=== PATIENT | female | born 1955 | race Caucasian/White ===

== ENCOUNTER → 2017-04-11 | Outpatient (CLI) | payer OTHER, MEDICAID ==
[2016-09-09 17:39] VITALS: BP 176/78
[2017-04-11 08:28] LABS: BASOPHILS # (AUTO) 0.1 X10^3/uL (0.0-0.1); BASOPHILS % (AUTO) 0.9 % (0.2-1.0); EOSINOPHILS # (AUTO) 0.4 x10^3/uL (0.0-0.2); EOSINOPHILS % (AUTO) 6.6 % (0.9-2.9); HEMOGLOBIN 11.8 g/dL (12.0-16.0); LYMPHOCYTES # (AUTO) 1.4 X10^3/uL (1.3-2.9); LYMPHOCYTES % (AUTO) 23.4 % (21.0-51.0); MEAN CORPUSCULAR HEMOGLOBIN 29.2 pg (27.0-34.0); MEAN CORPUSCULAR HGB CONC 32.8 g/dL (33.0-35.0); MEAN CORPUSCULAR VOLUME 88.9 fL (80.0-100.0); MEAN PLATELET VOLUME 8.9 fL (7.4-11.0); MONOCYTES # (AUTO) 0.6 x10^3/uL (0.3-0.8); MONOCYTES % (AUTO) 9.4 % (0.0-13.0); NEUTROPHILS # (AUTO) 3.5 x10^3/uL (2.2-4.8); NEUTROPHILS % (AUTO) 59.7 % (42.0-75.0); PLATELET COUNT 259 X10^3/uL (150.0-450.0); RED BLOOD COUNT 4.05 X10^6/uL (3.5-5.4); RED CELL DISTRIBUTION WIDTH 14.4 % (11.6-16.5); WHITE BLOOD COUNT 5.9 X10^3/uL (3.6-10.0)
[2017-04-11 08:36] LABS: HEMOGLOBIN A1C 10.8 % (4.5-6.2)
[2017-04-11 08:37] LABS: ALANINE AMINOTRANSFERASE 47 Units/L (12-78); ALBUMIN 3.7 g/dL (3.4-5.0); ALKALINE PHOSPHATASE 46 Units/L (46-116); ASPARTATE AMINO TRANSFERASE 43 Units/L (15-37); BLOOD UREA NITROGEN 27 mg/dL (7-18); CALCIUM 10.3 mg/dL (8.5-10.1); CARBON DIOXIDE 27.8 mmol/L (21-32); CHLORIDE 103 mmol/L (98-107); CHOL/HDL RATIO 5.8 (0.0-5.0); CHOLESTEROL 209 mg/dL (0-200); COR NA(FOR HYPERGLY) 143 mmol/L (136-145); CREATININE 1.49 mg/dL (0.55-1.02); GLUCOSE 273 mg/dL (65-99); HDL CHOLESTEROL 36 mg/dL (40-60); SODIUM 139 mmol/L (136-145); TOTAL PROTEIN 7.3 g/dL (6.4-8.2); TRIGLYCERIDES 381 mg/dL (0-150); eGFR BLACK RACES 46 (>60); eGFR NON BLACK RACES 38 (>60)
[2017-04-11 08:47] LABS: CREATININE,URINE 137.46 mg/dL (29-226)
[2017-04-11 08:50] LABS: MICROALBUMIN,URINE 612.4 mg/L
== END ==
LOC: LAB 08:00
PROVIDERS: ATTEND Obstetrics & Gynecology Obstetrics
DX: G47.61 Periodic limb movement disorder (principal); E11.9 Type 2 diabetes mellitus without complications
CPT/HCPCS: 36415; 80053; 80061; 82043; 82728; 83036; 83525; 85025

== ENCOUNTER → 2017-06-22 | Outpatient (CLI) | payer OTHER, MEDICAID ==
[2016-09-09 17:39] VITALS: BP 176/78
[2017-06-22 19:55] LABS: CALCIUM 9.9 mg/dL (8.5-10.1); CARBON DIOXIDE 26.9 mmol/L (21-32); CREATININE 1.23 mg/dL (0.55-1.02); URIC ACID 3.2 mg/dL (2.6-6.0)
== END ==
LOC: LAB 18:00
PROVIDERS: ATTEND Nurse Practitioner Family
DX: E11.9 Type 2 diabetes mellitus without complications (principal)
CPT/HCPCS: 36415; 80048; 82306; 82607; 83036; 84550

== ENCOUNTER 2017-07-27 08:21 | Day surgery (SDC) | payer OTHER, MEDICAID ==
[2017-07-27] MEDS ORDERED: D5 LR 1000 ML 1,000 ML IV ONE (08:23)
[2017-07-27] MEDS ORDERED: NS 1000 ML 1,000 ML ONE (08:42)
[2017-07-27] MEDS ORDERED: DIPRIVAN VIAL 20 ML ONE (09:52)
[2017-07-27 10:51] VITALS: BP 145/70
== END 2017-07-27 10:33 | disposition home or self-care (01) ==
LOC: SURG1 08:21
PROVIDERS: ATTEND Internal Medicine Gastroenterology
PROC: 0DB98ZX Excision of Duodenum, Via Natural or Artificial Opening Endoscopic, Diagnostic (ICD-10-PCS; principal; 2017-07-27 11:00)
PROC: 0DB88ZX Excision of Small Intestine, Via Natural or Artificial Opening Endoscopic, Diagnostic (ICD-10-PCS; principal; 2017-07-27 11:00)
PROC: 0DB68ZX Excision of Stomach, Via Natural or Artificial Opening Endoscopic, Diagnostic (ICD-10-PCS; principal; 2017-07-27 11:00)
PROC: 0DJ08ZZ Inspection of Upper Intestinal Tract, Via Natural or Artificial Opening Endoscopic (ICD-10-PCS; principal; 2017-07-27 11:00)
DX: R13.19 Other dysphagia (principal); R10.13 Epigastric pain; K21.9 Gastro-esophageal reflux disease without esophagitis; K29.60 Other gastritis without bleeding; K26.9 Duodenal ulcer, unspecified as acute or chronic, without hemorrhage or perforation; K22.4 Dyskinesia of esophagus; K20.8 Other esophagitis; K22.2 Esophageal obstruction; D3A.092 Benign carcinoid tumor of the stomach
CPT/HCPCS: A4217; J3490; J7120

== ENCOUNTER 2017-08-03 07:08 | Day surgery (SDC) | payer OTHER, MEDICAID ==
[2017-08-03] MEDS ORDERED: D5 LR 1000 ML 1,000 ML IV ONE (07:15)
[2017-08-03] MEDS ORDERED: NS 1000 ML 1,000 ML ONE (07:27)
[2017-08-03] MEDS ORDERED: DIPRIVAN VIAL 20 ML ONE (08:52)
[2017-08-03] MEDS ORDERED: FENTANYL INJ 100 mcg ONE (08:52)
[2017-08-03] MEDS ORDERED: XYLOCAINE-MPF 1% ONE (08:52)
[2017-08-03 09:26] VITALS: BP 146/71
== END 2017-08-03 09:35 | disposition home or self-care (01) ==
LOC: SURG1 07:08
PROVIDERS: ATTEND Internal Medicine Gastroenterology
PROC: 0DBL8ZX Excision of Transverse Colon, Via Natural or Artificial Opening Endoscopic, Diagnostic (ICD-10-PCS; principal; 2017-08-03 08:30)
PROC: 0DJD8ZZ Inspection of Lower Intestinal Tract, Via Natural or Artificial Opening Endoscopic (ICD-10-PCS; principal; 2017-08-03 08:30)
DX: Z12.11 Encounter for screening for malignant neoplasm of colon (principal); K63.5 Polyp of colon; K57.30 Diverticulosis of large intestine without perforation or abscess without bleeding; K64.0 First degree hemorrhoids; D12.3 Benign neoplasm of transverse colon; R19.4 Change in bowel habit
CPT/HCPCS: A4217; J3010; J3490; J7120

== ENCOUNTER 2021-05-27 17:11 | Observation (INO) ==
[2021-05-27] MEDS ORDERED: HumuLIN R SC PRN (19:23)
[2021-05-27] MEDS ORDERED: NS 1000 ML 1,000 ML IV ONE (19:25)
--- NOTE | 2021-05-27 19:49 | RAD ---
CHEST, 1 VIEWHISTORY: SOBStudy: Single view of the chest.Comparison:NoneFindings:The cardiomediastinal silhouette is normal.No focal consolidations, pleural effusions or pneumothorax. Osseous structures demonstrate no acute abnormality.IMPRESSION:1. No acute cardiopulmonary process.Electronically signed by: NANCY CADET (May 27, 2021 19:46:52)
[2021-05-27] MEDS ORDERED: KAYEXALATE SUSP PO SCH (20:00)
[2021-05-27] MEDS ORDERED: TOUJEO SOLOSTAR PEN SC SCH (21:00)
[2021-05-27 21:50] VITALS: BMI 29.0
[2021-05-27] MEDS: NS 1000 ML 1,000 ML IV SCH (22:43)
[2021-05-28] MEDS: NS 1000 ML 1,000 ML IV SCH (05:29)
[2021-05-28 05:54] LABS: BASOPHILS # (AUTO) 0.1 X10^3/uL (0.0-0.1); BASOPHILS % (AUTO) 0.8 % (0.2-1.0); EOSINOPHILS # (AUTO) 0.2 x10^3/uL (0.0-0.2); EOSINOPHILS % (AUTO) 3.1 % (0.9-2.9); HEMATOCRIT 32.9 % (36.0-47.0); HEMOGLOBIN 11.4 g/dL (12.0-16.0); LYMPHOCYTES # (AUTO) 1.7 X10^3/uL (1.3-2.9); LYMPHOCYTES % (AUTO) 24.2 % (21.0-51.0); MEAN CORPUSCULAR HEMOGLOBIN 30.2 pg (27.0-34.0); MEAN CORPUSCULAR HGB CONC 34.7 g/dL (33.0-35.0); MEAN CORPUSCULAR VOLUME 87.2 fL (80.0-100.0); MEAN PLATELET VOLUME 9.1 fL (7.4-11.0); MONOCYTES # (AUTO) 0.7 x10^3/uL (0.3-0.8); MONOCYTES % (AUTO) 9.5 % (0.0-13.0); NEUTROPHILS # (AUTO) 4.5 x10^3/uL (2.2-4.8); NEUTROPHILS % (AUTO) 62.4 % (42.0-75.0); PLATELET COUNT 210 X10^3/uL (150.0-450.0); RED BLOOD COUNT 3.78 X10^6/uL (3.5-5.4); RED CELL DISTRIBUTION WIDTH 13.8 % (11.6-16.5); WHITE BLOOD COUNT 7.2 X10^3/uL (3.6-10.0)
[2021-05-28 06:16] LABS: ALANINE AMINOTRANSFERASE 38 Units/L (12-78); ALBUMIN 3.5 g/dL (3.4-5.0); ALKALINE PHOSPHATASE 61 Units/L (46-116); ASPARTATE AMINO TRANSFERASE 35 Units/L (15-37); BLOOD UREA NITROGEN 13 mg/dL (7-18); CALCIUM 9.2 mg/dL (8.5-10.1); CARBON DIOXIDE 26.5 mmol/L (21-32); CHLORIDE 106 mmol/L (98-107); COR NA(FOR HYPERGLY) 145 mmol/L (136-145); CREATININE 0.94 mg/dL (0.55-1.02); SODIUM 141 mmol/L (136-145); TOTAL PROTEIN 6.9 g/dL (6.4-8.2); eGFR NON BLACK RACES > 60 (>60)
[2021-05-28] MEDS ORDERED: SYNTHROID 50 mcg TAB PO SCH (09:00)
[2021-05-28] MEDS ORDERED: ARMODAFINIL 250 MG PO SCH (09:00)
[2021-05-28] MEDS ORDERED: LOPRESSOR TAB 25 MG PO SCH (09:00)
[2021-05-28] MEDS ORDERED: NORVASC TAB 10 MG PO SCH (09:00)
[2021-05-28] MEDS ORDERED: LEXAPRO PO SCH (09:00)
[2021-05-28] MEDS ORDERED: ASPIRIN EC 81 MG PO SCH (09:00)
[2021-05-28] MEDS ORDERED: PROTONIX TAB 40 MG PO SCH (09:00)
[2021-05-28] MEDS ORDERED: JANUVIA PO SCH (09:00)
[2021-05-28] MEDS ORDERED: LOTENSIN TAB 10 MG PO SCH (09:00)
[2021-05-28] MEDS ORDERED: PLAVIX PO SCH (09:00)
[2021-05-28 09:02] VITALS: BP 151/74
--- NOTE | 2021-05-28 09:03 | DR.SSS ---
SHORT STAY SUMMARY Admission Date Date of Admission: 05/27/21 Discharge Date Discharge Date: 05/28/21 Admission Diagnoses Admission Diagnoses: Hyperglycemia Hyperkalemia KERRI Discharge Diagnoses Discharge Diagnoses: Hyperglycemia Hyperkalemia KERRI Chief Complaint Chief Complaint: Fatigue History of Present Illness History of Present Illness: Pt is a 65 year old female past medical history of Hypertension, DMT2, Hypothyroidism directly admitted from [facility] due to hyperglycemia, hyperkalemia, and rule out DKA. Pt has been reporting worsening fatigue. She does not regularly check her blood glucose levels and when obtaining history it was noted she was not taking correct dose of insulin at home. She has been taking Toujeo 65 units instead of 75 units. She states that when she first took 75 units it made her jittery and felt her blood sugars were "too low". She has had increased urinary frequency without dysuria, abdominal pain, or fever. Pt had labs drawn from clinic that were noted abnormal. Denies chest pain, shortness of breath, palpitations. Past Medical History Past Medical History: Arthritis, Diabetes, Hypertension and Sleep Apnea Past Surgical History Surgical History: Appendectomy and Allergies Allergies Allergy/AdvReac Type Severity Reaction Status Date / Time NSAIDS (Non-Steroidal Allergy Verified 05/27/21 22:00 Anti-Inflamma Penicillins Allergy Verified 10/17/19 08:25 Medications Home Medications: NSAIDS (Non-Steroidal Anti-Inflamma Allergy (Verified 05/27/21 22:00) Penicillins Allergy (Verified 10/17/19 08:25) CONTINUE taking the following medications Janumet 1 tab PO BID 05/28/21 [History] Myrbetriq 25 mg PO DAILY 05/28/21 [History] amlodipine-benazepril 1 cap PO DAILY 05/28/21 [History] armodafinil 250 mg PO DAILY 05/28/21 [History] escitalopram oxalate 20 mg PO DAILY 05/28/21 [History] gabapentin 600 mg PO TID 05/28/21 [History] metoprolol tartrate 25 mg PO BID 05/28/21 [History] oxybutynin chloride 5 mg PO DAILY 05/28/21 [History] rosuvastatin 40 mg PO HS 05/28/21 [History] sulfamethoxazole-trimethoprim 1 tab PO BID 05/28/21 [History] New Prescriptions insulin glargine U-300 conc [Toujeo SoloStar U-300 Insulin] 36 unit SC BID 30 Days #7.2 ml 05/28/21 [Rx] Family History Family Medical History: Diabetes Mellitus, Coronary Artery Disease and Hypertension Social History Alcohol Use: None Drug Use: None Review of Systems Constitutional: Weakness; denies Fever and Chills Eyes: No Symptoms Reported ENT: No Symptoms Reported Respiratory: No Symptoms Reported Cardiovascular: No Symptoms Reported Gastrointestinal: No Symptoms Reported Genitourinary: Frequency; denies Dysuria Musculoskeletal: No Symptoms Reported Skin: No Symptoms Reported Neurological: No Symptoms Reported Physical Exam Vital Signs: Last Vital Signs Temp 98.0 F 05/28/21 08:00 Pulse 91 H 05/28/21 09:00 Resp 19 05/28/21 09:00 BP 151/74 05/28/21 09:00 Pulse Ox 95 05/28/21 09:00 Oriented: Normal Eyes: Normal Ear: Normal Nose: Normal Throat: Normal Respiratory: Clear Throughout Cardiovascular: Normal : Normal Auscultation: Bowel Sounds: Normal Palpation: Normal Tenderness: Normal Skin: Normal Musculoskeletal: Normal Psychiatric: Normal Mood Description: Calm Speech Pattern: Clear Labs Labs: Laboratory Last Values WBC 7.2 X10^3/uL (3.6-10.0) 05/28/21 05:41 RBC 3.78 X10^6/uL (3.5-5.4) 05/28/21 05:41 Hgb 11.4 g/dL (12.0-16.0) L 05/28/21 05:41 Hct 32.9 % (36.0-47.0) L 05/28/21 05:41 MCV 87.2 fL (80.0-100.0) 05/28/21 05:41 MCH 30.2 pg (27.0-34.0) 05/28/21 05:41 MCHC 34.7 g/dL (33.0-35.0) 05/28/21 05:41 RDW 13.8 % (11.6-16.5) 05/28/21 05:41 Plt Count 210 X10^3/uL (150.0-450.0) 05/28/21 05:41 MPV 9.1 fL (7.4-11.0) 05/28/21 05:41 Neut % (Auto) 62.4 % (42.0-75.0) 05/28/21 05:41 Lymph % (Auto) 24.2 % (21.0-51.0) 05/28/21 05:41 Gage % (Auto) 9.5 % (0.0-13.0) 05/28/21 05:41 Eos % (Auto) 3.1 % (0.9-2.9) H 05/28/21 05:41 Baso % (Auto) 0.8 % (0.2-1.0) 05/28/21 05:41 Neut # (Auto) 4.5 x10^3/uL (2.2-4.8) 05/28/21 05:41 Lymph # (Auto) 1.7 X10^3/uL (1.3-2.9) 05/28/21 05:41 Gage # (Auto) 0.7 x10^3/uL (0.3-0.8) 05/28/21 05:41 Eos # (Auto) 0.2 x10^3/uL (0.0-0.2) 05/28/21 05:41 Baso # (Auto) 0.1 X10^3/uL (0.0-0.1) 05/28/21 05:41 Absolute Nucleated RBC 0.0 /100WBC 05/28/21 05:41 Sodium 141 mmol/L (136-145) 05/28/21 05:41 Corrected Sodium 145 mmol/L (136-145) 05/28/21 05:41 Potassium 4.5 mmol/L (3.5-5.1) 05/28/21 05:41 Chloride 106 mmol/L (98-107) 05/28/21 05:41 Carbon Dioxide 26.5 mmol/L (21-32) 05/28/21 05:41 BUN 13 mg/dL (7-18) 05/28/21 05:41 Creatinine 0.94 mg/dL (0.55-1.02) 05/28/21 05:41 Est GFR (MDRD) Af Amer > 60 (>60) 05/28/21 05:41 Est GFR (MDRD) Non-Af > 60 (>60) 05/28/21 05:41 Glucose 246 mg/dL (65-99) H 05/28/21 05:41 POC Glucose (mg/dL) 242 mg/dL (65-99) H 05/28/21 05:22 Calcium 9.2 mg/dL (8.5-10.1) 05/28/21 05:41 Corrected Calcium TNP 05/28/21 05:41 Total Bilirubin 0.20 mg/dL (0.2-1.0) 05/28/21 05:41 AST 35 Units/L (15-37) 05/28/21 05:41 ALT 38 Units/L (12-78) 05/28/21 05:41 Alkaline Phosphatase 61 Units/L (46-116) 05/28/21 05:41 Total Protein 6.9 g/dL (6.4-8.2) 05/28/21 05:41 Albumin 3.5 g/dL (3.4-5.0) 05/28/21 05:41 Globulin 3.4 g/dL (2.5-4.5) 05/28/21 05:41 Albumin/Globulin Ratio 1.0 Ratio (1.1-2.1) L 05/28/21 05:41 Urine Acetone Negative (NEGATIVE) 05/27/21 22:21 SARS-CoV-2 (PCR) Negative (NEGATIVE) 05/27/21 19:21 Influenza Type A (PCR) Negative (NEGATIVE) 05/27/21 19:21 Influenza Type B (PCR) Negative (NEGATIVE) 05/27/21 19:21 RSV (PCR) Negative (NEGATIVE) 05/27/21 19:21 Assessment/Plan (1) Hyperglycemia without ketosis: (2) Hyperkalemia: (3) Acute kidney injury: Hospital Course Hospital Course: Pt had labs/imaging: Wbc 7.2, Hgb 11.4, Plt 210, Na 146, K 6.0, Creatinine 1.30, Glucose 433, A1c 10.5, Acetone negative. CXR: no acute cardiopulmonary process. She was started on IVF NS, SSI, Toujeo, and given kayexalate for hyperkalemia. Other home medications were also restarted. DKA was ruled out. Pt responded well to treatments, K level down to 4.5. Her fatigue improved with IVF hydration. Adjusted insulin Toujeo to 36 units BID dosing. Encouraged and strongly recommended to patient to check home glucose levels daily. Pt discharged in stable condition, instructed to follow up with pcp in 3- 5 days. Discharge Medications Discharge Medications: Home Medication List Janumet 1 tab PO BID 05/28/21 [History] Myrbetriq 25 mg PO DAILY 05/28/21 [History] amlodipine-benazepril 1 cap PO DAILY 05/28/21 [History] armodafinil 250 mg PO DAILY 05/28/21 [History] escitalopram oxalate 20 mg PO DAILY 05/28/21 [History] gabapentin 600 mg PO TID 05/28/21 [History] insulin glargine U-300 conc [Toujeo SoloStar U-300 Insulin] 36 unit SC BID 30 Days #7.2 ml 05/28/21 [Rx] metoprolol tartrate 25 mg PO BID 05/28/21 [History] oxybutynin chloride 5 mg PO DAILY 05/28/21 [History] rosuvastatin 40 mg PO HS 05/28/21 [History] sulfamethoxazole-trimethoprim 1 tab PO BID 05/28/21 [History] Prescriptions: insulin glargine U-300 conc [Toujeo SoloStar U-300 Insulin] [place] Discharge Disposition Discharge Disposition: Home
[2021-05-28] MEDS ORDERED: LEXAPRO ONE (09:12)
[2021-05-28] MEDS ORDERED: NEURONTIN TAB 600 MG PO SCH (14:00)
[2021-05-28] MEDS ORDERED: GLUCOPHAGE PO SCH (17:00)
[2021-05-28] MEDS ORDERED: SNACK - Diabetic Appropriate PO SCH (20:00)
[2021-05-28] MEDS ORDERED: CRESTOR TAB 10 MG PO SCH (21:00)
[2021-05-28] MEDS ORDERED: TOUJEO SOLOSTAR PEN SC SCH (21:00)
== END 2021-05-28 11:10 | disposition home or self-care (01) ==
LOC: ICU
PROVIDERS: ADMIT Family Medicine; ATTEND Family Medicine
DX: E03.8 Other specified hypothyroidism; Z20.822 Contact with and (suspected) exposure to COVID-19; R94.31 Abnormal electrocardiogram [ECG] [EKG]; I10 Essential (primary) hypertension; E87.5 Hyperkalemia; E11.65 Type 2 diabetes mellitus with hyperglycemia; N17.8 Other acute kidney failure